=== PATIENT | male | born 1995 | race Caucasian/White ===

== ENCOUNTER 2016-09-05 04:18 | Inpatient (IN) | payer OTHER ==
[2016-09-05] MEDS ORDERED: LORazepam INJ* 2 MG/ML 1 ML VIAL IM ONE (04:39)
[2016-09-05] MEDS ORDERED: diPHENhydraMINE IV* 50 MG/ML 1 ml VIAL (BENADRYL) IM ONE (04:39)
[2016-09-05] MEDS ORDERED: Haloperidol INJ IV/IM* 5 MG/ML AMP IM ONE (04:39)
[2016-09-05 05:21] LABS: Hematocrit 41 % (42-52); Hemoglobin 14.3 g/dl (14.0-18.0); Mean Corpuscular HGB Conc 35 g/dl (31-36); Mean Corpuscular Hemoglobin 29 pg (27-31); Mean Corpuscular Volume 84 fL (80-94); Mean Platelet Volume 8 um3 (7.4-10.4); Red Blood Count 4.95 10^6/ul (4.0-5.4); Red Cell Distribution Width 13 % (10.5-15); White Blood Count 12.2 10^3/ul (3.5-10.8)
[2016-09-05 05:39] LABS: ALT 23 U/L (7-52); AST 27 U/L (13-39); Albumin 4.9 g/dL (3.2-5.2); Alkaline Phosphatase 69 U/L (34-104); Anion Gap 11 mmol/L (2-11); BUN/Creatinine Ratio 11.1 (8-20); Blood Urea Nitrogen 15 mg/dL (6-24); CO2 Carbon Dioxide 26 mmol/L (22-32); Calcium 9.8 mg/dL (8.6-10.3); Chloride 99 mmol/L (101-111); EGFR African American 85.8 (>60); EGFR Non-African American 66.7 (>60); Globulin 3.4 g/dL (2-4); Glucose 123 mg/dL (70-100); Potassium 3.5 mmol/L (3.5-5.0); Sodium 136 mmol/L (133-145); Total Protein 8.3 g/dL (6.4-8.9)
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
[2016-09-05 06:15] LABS: Acetaminophen < 15 mcg/mL; Alcohol < 10 mg/dL (<10); Salicylate < 2.50 mg/dL (<30)
[2016-09-05 06:17] LABS: Benzodiazepine Urine Screen None Detected (None Detect)
[2016-09-05 06:19] LABS: Budding Yeast Present (Absent); Urine Bacteria Absent (Absent); Urine Bilirubin Negative (Negative); Urine Glucose Negative (Negative); Urine Nitrite Negative (Negative)
[2016-09-05 06:25] LABS: TSH (Thyroid Stimulating Horm) 2.73 mcIU/mL (0.34-5.60)
[2016-09-05] MEDS ORDERED: Acetaminophen TAB* 325 MG PO PRN (16:36)
[2016-09-05] MEDS ORDERED: Al Hydrox/Mg Hydrox/Simet LIQ* 30 ML UDC PO PRN (16:36)
[2016-09-05] MEDS ORDERED: Nicotine Inhaler* 10 MG AMP INH PRN (16:36)
[2016-09-05] MEDS ORDERED: OLANzapine TAB*ODT* 5 MG PO PRN (16:45)
[2016-09-05] MEDS ORDERED: OLANzapine TAB*ODT* 10 MG TAB PO SCH (21:00)
[2016-09-06] MEDS: Vitamin THERAPEUTIC TAB PO SCH (09:16)
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
[2016-09-06] MEDS ORDERED: traZODone TAB* 50 MG TAB PO PRN (19:12)
[2016-09-07 08:28] VITALS: BP 121/69
[2016-09-07] MEDS: Vitamin THERAPEUTIC TAB PO SCH (09:49)
--- NOTE | 2016-09-07 11:12 | DS ---
Subjective - Subjective Service Types: [id number] [facility] Day Mgmt simple under 30 min Discharge Date: 09/07/16 Subjective: Met again with Jesus, his mother, and Ms Cavazos. He reported full sustained remission of psychosis. He confirmed that he has only had this one episode of psychosis with hallucinations and paranoid delusions lasting no longer than 7 hours following several days of sleep deprivation, heavy alcohol consumption and amphetamine (Adderall) abuse. 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 He declines our offer to arrange for formal treatment for substance abuse. He says he feels he can simply quit, citing his ability to quit smoking when he wishes. He does not feel he needs any help maintaining abstinence from tobacco either. He also declines referral to psychiatric aftercare. His and his mother's report is that this episode of psychosis was limited to those less than 7 hours after sleep deprivation and alcohol and amphetamine intoxication, such that these clear causes can be avoided to prevent recurrence. He states that he is committed to maintaining sobriety, having been woke up by the experience of psychosis and psychiatric hospitalization. He has no physical complaints. He reports that he will enroll in formal substance abuse treatment or attend AA or NA if he has persistent cravings for substances. Objective - Appearance Appearance: Healthy Appearing Dysmorphic Features: No Hygiene: Normal Grooming: Well Kept - He has only one tattoo, on R volar forearm - Behavior Psychomotor Activities: Normal Exhibits Abnormal Movement: No - Attitude and Relatedness Attitude and Relatedness: Well Related Eye Contact: Good - Speech Quality: Unpressured Latencies: Normal Quantity: Appropriate - Mood Patient's Decription of Mood: "Good" - Affect Observed Affect: Good Affect Consistent with: Euthymia - Thought Process Patient's Thought Process: Coherent, Goal Directed Thought Content: No Passive Wish, No Suicidal Planning, No Homicidal Ideation, No Paranoid Ideation - Sensorium Experiencing Hallucinations: No, Sensorium is Clear Type of Hallucinations: Visual: No, Auditory: No, Command: No - Level of Consciousness Level of Consciousness: Alert Orientation: Yes Intact, Yes Orientated to Time, Yes Orientated to Place, Yes Orientated to Person - Impulse Control Impulse Control: Intact - Insight and Judgement Insight and Judgement: Fair - Group Participation Particating in Group Activities: Yes - Medication Management Medication Management Adherence: Yes Treatment Course & Assessment Clinical Course & Impression: Jesus Denis is a 21-year-old, single male, who comes to us with a report of a single very brief episode of psychosis and with no prior psychiatric history. He denies ever any suicidal ideation. He denies ever any other dangerous intent or plan. He is agreeable to maintaining abstinence both from alcohol and from amphetamines. We will observe him on the unit for the next 24 hours with plan to discharge tomorrow so long as he continues to present as fully recovered from his very brief psychotic episode. He is on a 9.39 status. Follow up care has been recommended as formal treatment for substance abuse. I have spoken with this mother who tells me that she has no concerns for his safety if we find that he is looking good through this next 24 hours here; she is fully endorsing his discharge under that criterion. We will encourage him to make use of the therapeutic milieu and groups. We will be considering the possibility of psychological testing with Dr. Carver. Aftercare is encouraged to be some form of substance abuse counseling but at this point he is saying that he feels that he can manage on his own. 4.6.17 Jesus is cleared for discharge. Over 24 hours observation, he has demonstrated and reported full sustained remission of psychosis. His episode of psychosis lasted less than 8 hours per his report. It was immediately preceded by intoxication with about 100 mg of Adderall following days of alcohol intoxication and sleep deprivation. It is therefore most likely that this psychotic episode was caused by these 3 time-limited factors. Given report of Jesus and his mother that he has had no other episodes of psychosis and no other significant psychiatric symptoms, it is highly likely not to recur without recurrence of similar causal events. It had been our recommendation that he enroll in a formal program to establish and maintain sobriety. He declined this, citing his ability to simply quit use of addictive substances such as tobacco. He has agreed to seek formal care for substance abuse if he has persistent cravings. He reports no other history of psychiatric symptoms, so reasonably chooses not to seek referral to outpatient psychiatric care. At no point has he expressed any dangerous intent or plan to harm himself or others outside of his brief psychotic episode, during which his only threat was directed at hallucinated intruders in his apartment by brandishing a drywall saw and poking at [employer] to scare the apparitions, per his account. We have no other report of any episode of threat or violence from Jesus. He is assessed as fully recovered from a brief psychotic episode induced by amphetamine and alcohol intoxication as well as sleep deprivation. He is assessed as at no acutely increased risk of harm to self or others and capable of adequate self-care to avoid harm. He did request medication in case of insomnia. He leaves here today in his mother's custody, and they will return to her home in the [facility] area for the weekend. Merits Inpatient Hospitalization: No Clear for Discharge: Adequate Clinical Respons, Acceptable Safety Profile, Low Utility of Inpt Care Inpatient DSM-IV Dx: Amphetamine-induced psychotic episode. Amphetamine abuse. Alcohol abuse. 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 Family: Mother is supportive Primary Support Group: Mother - [place] V SLG-[id number]-[id number]: 70 Estimate of Highest-Past Year: 75 Discharge Planning - Discharge Planning Recommendations for Continuing Care: Primary Care Followup Medications: Trazodone HCl (Desyrel Tab*) 50 mg PO BEDTIME PRN PRN Reason: INSOMNIA Reports ability to abstain from nicotine on his own, no need for stop-smoking aids. Discharge Planning: Prescriptions provided for discharge [x] Yes - 30 day supply of trazodone 50 mg qHS prn insomnia (#30) phoned into [facility] at . [] No Follow up care details as per social work arrangements. Patient response to discharge plan: [x] eager for discharge [x] agreeable with discharge plan [] ambivalent about discharge [] disagrees with discharge today
== END 2016-09-07 11:15 | disposition home or self-care (01) | DRG 775 ==
LOC: ED 04:18 → BSU 20:00
PROVIDERS: ADMIT Internal Medicine; ATTEND Psychiatry & Neurology Psychiatry
DX: F15.159 Other stimulant abuse with stimulant-induced psychotic disorder, unspecified (principal); F10.10 Alcohol abuse, uncomplicated; G47.00 Insomnia, unspecified; Y90.0 Blood alcohol level of less than 20 mg/100 ml; F41.9 Anxiety disorder, unspecified; Z81.8 Family history of other mental and behavioral disorders; Z81.1 Family history of alcohol abuse and dependence
CPT/HCPCS: 36415; 80053; 80307; 80320; 80329; 81003; 81015; 84443; 85025; 99222; 99238; A9270-GY; G0480